=== PATIENT | male | born 1995 | race Caucasian/White ===

== ENCOUNTER 2017-05-12 13:53 | Emergency (ER) | payer MEDICAID, OTHER ==
[2017-05-12 14:55] VITALS: BP 130/86
--- NOTE | 2017-05-12 17:07 | UC ---
Karolyn Huynh Thomas, scribed for Sarina Cleveland DO on 05/12/17 at 1526 . Eye Complaint HPI - HPI Summary HPI Summary: The pt is a 21 y/o M presenting to [facility] [place] c/o R eyelid swelling that has been present for the last three days. The right eye is almost swollen shut in the AM, and the pain is worse in the AM. The pt rates the pain 4/10. There is no pain when he moves his eyeball. The patient has treated the pain with a compress of a warm wet green tea bag in the AM for the last two days. In the AM , the patients eye appears crusty. The patient also has a region of soreness to the corner of his lip that is being treated. He has no right eye visual impairment from this swelling. Pt denies F/C/S, N/V, abd pain, CP, SOB, cough, NOLAND, and rash. The patient has a Hx of prediabetes that is being managed by his PCP. - History of Current Complaint Chief Complaint: UCEye Stated Complaint: EYE COMPLAINT Time Seen by Provider: 05/12/17 15:07 Hx Obtained From: Patient Onset/Duration: Lasting Days - onset 3 days ago, Still Present Timing: Constant Pain Intensity: 4 Pain Scale Used: 0-10 Numeric Location of Injury: Other - Right eyelid Alleviating Factor(s): Nothing Associated Signs And Symptoms: Positive: Negative. Negative: Vision Impairment Right - Allergies/Home Medications Allergies/Adverse Reactions: Allergies Allergy/AdvReac Type Severity Reaction Status Date / Time Amoxicillin Allergy Severe Rash Verified 09/20/15 18:41 Penicillins Allergy Intermediate Rash Verified 09/20/15 18:41 Home Medications: Home Medications Labetalol TAB* [Trandate TAB*] 100 mg 05/12/17 [History] PMH/Surg Hx/FS Hx/Imm Hx Previously Healthy: No - Prediabetes, GERD, asthma - Surgical History Surgical History: Yes Surgery Procedure, Year, and Place: left wrist reconstruction - Family History Known Family History: Positive: Hypertension, Diabetes, Blood Disorder, Other - relative of blood clot, stomach cancer - Social History Lives: With Family Alcohol Use: None Substance Use Type: None Smoking Status (MU): Former Smoker Type: Cigarettes Amount Used/How Often: on and off, 1 pack a week Have You Smoked in the Last Year: Yes When Did the Patient Quit Smoking/Using Tobacco: 2014 - Immunization History Most Recent Influenza Vaccination: never Vaccination Up to Date: Yes Review of Systems Constitutional: Other - NEGATIVE: fever ENT: Other - R eyelid swelling for the last three days Is Patient Immunocompromised?: No All Other Systems Reviewed And Are Negative: Yes Physical Exam Triage Information Reviewed: Yes Appearance: Well-Appearing, No Pain Distress, Well-Nourished Vital Signs: Initial Vital Signs Temp 98.1 F 05/12/17 14:52 Pulse 79 05/12/17 14:52 Resp 20 05/12/17 14:52 BP 130/86 05/12/17 14:52 Pulse Ox 99 05/12/17 14:52 Vital Signs Reviewed: Yes Eyes: Positive: Conjunctiva Inflamed - left eye, Discharge - minimal, Other: - chalazion medial left lid ENT: Positive: Hearing grossly normal. Negative: Muffled/hoarse voice Neck exam: Normal Neck: Positive: Supple Respiratory: Positive: Lungs clear, Normal breath sounds, No respiratory distress, No accessory muscle use Cardiovascular: Positive: RRR, No Murmur Musculoskeletal Exam: Normal Neurological: Positive: Alert, Muscle Tone Normal Psychological Exam: Normal Psychological: Positive: Age Appropriate Behavior Skin Exam: Normal Skin: Positive: Other - Warm, dry, normal color Eye Complaint Course/Dx - Course Course Of Treatment: The pt is a 21 y/o M c/o R eyelid swelling that has been present for the last three days. Medications reviewed this visit. High blood pressure noted. - Differential Dx/Diagnosis Differential Diagnosis/HQI/PQRI: Conjunctivitis, Periorbital Cellulitis, Other - sty, chalazion Provider Diagnoses: chalazion, conjunctivitis, Elevated blood pressure without a diagnosis of hypertension Discharge - Discharge Plan Condition: Stable Disposition: HOME Prescriptions: Erythromycin OPTH OINT* [Erythromycin 0.5% OPTH OINT*] 1 applic RIGHT EYE QID # 1 tube Patient Education Materials: Chalazion (ED), Conjunctivitis (ED) Referrals: Jessie Cárdenas [Physician Associate Director Of Sales] - The documentation as recorded by the Karolyn hutton Thomas accurately reflects the service I personally performed and the decisions made by , Sarina Cleveland DO.
== END 2017-05-12 15:52 | disposition home or self-care (01) ==
LOC: UCEAST 13:53
DX: H00.13 Chalazion right eye, unspecified eyelid (principal); H10.9 Unspecified conjunctivitis; R03.0 Elevated blood-pressure reading, without diagnosis of hypertension
CPT/HCPCS: 99212; G0463